=== PATIENT | female | born 1955 | race Caucasian/White ===

== ENCOUNTER 2025-03-01 15:25 | Outpatient (CLI) | payer MEDICARE, SELFPAY ==
--- NOTE | ~2025-03-01 | CT_ITS ---
EXAMINATION: CT brain wo con DATE: 03/01/2025 16:08 INDICATION: Altered mental status. Weakness in extremities. TECHNIQUE: Computed tomography (CT) of the head was performed without intravenous contrast. Sagittal and coronal reconstructions were performed. The mA was adjusted according to patient size. Iterative reconstruction technique was employed. The dose-length product was 983.67 mGy-cm. COMPARISON: None FINDINGS: No acute intracranial hemorrhage, acute infarction or abnormal extra axial fluid collection. There is moderate scattered white matter hypoattenuation consistent with chronic small vessel ischemic diseas e. Symmetric prominence of the sulci and ventricles consistent with mild age-appropriate diffuse cere bral volume loss. No mass/mass effect. The orbits, paranasal sinuses and mastoid air cells are normal . IMPRESSION: 1. Age-related changes the brain including mild diffuse volume loss and moderate scattered white kristofer er hypoattenuation consistent with chronic small vessel ischemic disease. No acute intracranial proce ss. Reviewed, dictated and finalized at location A. IMPRESSION: 1. Age-related changes the brain including mild diffuse volume loss and moderat e scattered white matter hypoattenuation consistent with chronic small vessel i schemic disease. No acute intracranial process.
== END 2025-03-01 15:26 | disposition home or self-care (01) ==
PROVIDERS: PCP Physician Assistant; Visit Provider Physician Assistant
DX: R29.898 Other symptoms and signs involving the musculoskeletal system (principal)
CPT/HCPCS: 70450